=== PATIENT | male | born 1980 | race Caucasian/White ===

== ENCOUNTER 2016-12-30 18:56 | Emergency (ER) | payer SELFPAY ==
[~2016-12-30] VITALS: Ht 182.8 cm; Wt 97.5 kg
[~2016-12-30 18:56] MED LIST: KEFLEX500 M1 PO
== END 2016-12-30 19:13 | disposition home or self-care (01) ==
LOC: ED 18:56
DX: S01.01XA Laceration without foreign body of scalp, initial encounter (principal); F17.200 Nicotine dependence, unspecified, uncomplicated; W45.8XXA Other foreign body or object entering through skin, initial encounter; Y93.89 Activity, other specified; Y92.149 Unspecified place in prison as the place of occurrence of the external cause; Y99.9 Unspecified external cause status

== ENCOUNTER 2017-01-17 17:50 | Emergency (ER) | payer SELFPAY ==
[~2017-01-17] VITALS: Ht 182.8 cm; Wt 97.5 kg
== END 2017-01-17 18:04 | disposition home or self-care (01) ==
LOC: ED 17:50
DX: S01.01XD Laceration without foreign body of scalp, subsequent encounter (principal); Z48.02 Encounter for removal of sutures; X58.XXXD Exposure to other specified factors, subsequent encounter; Y92.9 Unspecified place or not applicable; Y99.9 Unspecified external cause status